=== PATIENT | female | born 1945 | race Caucasian/White ===

== ENCOUNTER 2016-10-30 14:17 | Inpatient (IN) | payer MEDICARE ==
[~2016-10-30] VITALS: Ht 165.1 cm; Wt 73.7 kg
[2016-10-30] VITALS (10 sets, daily range): BP systolic 95–157; BP diastolic 44–110
[2016-10-30] MEDS ORDERED: SODIUM CHLORIDE 0.9% 1,000ML IVBOLUS ONE (15:00)
[2016-10-30] MEDS ORDERED: PLEASE ENTER ALLERGIES MC SCH ×2 (15:00)
[2016-10-30] MEDS ORDERED: SODIUM CHLORIDE FLUSH 10ML SYR IVF ONE (15:00)
[2016-10-30 15:03] LABS: BLOOD UREA NITROGEN 132 mg/dL (7-18)
[2016-10-30] MEDS ORDERED: PANTOPRAZOLE 80 MG in SODIUM CHLORIDE 0.9% 100 ML IV SCH (15:16)
[2016-10-30] MEDS ORDERED: TRAM50TA2 PO (15:30)
[2016-10-30] MEDS ORDERED: NAPR-874 PO (15:30)
[2016-10-30] MEDS ORDERED: DIPH25CA61 PO (15:30)
[2016-10-30 15:33] LABS: DIFF TOTAL CELLS COUNTED 100 CELL DIFF
[2016-10-30 15:37] LABS: ANISOCYTOSIS 1+; HYPOCHROMIA 1+
[2016-10-30 15:38] LABS: LARGE PLATELETS 1+
[2016-10-30 15:39] LABS: VERIFY COUNTS? YES
[2016-10-30] MEDS ORDERED: CEFTRIAXONE 1,000 MG in SODIUM CHLORIDE 0.9% 50 ML IV SCH (16:00)
[2016-10-30] MEDS ORDERED: POLYETHYLENE GLYCOL 17 GM PACKET PO PRN (16:00)
[2016-10-30] MEDS ORDERED: ACETAMINOPHEN 325 MG TABLET PO PRN (16:00)
[2016-10-30] MEDS ORDERED: NALOXONE 0.4 MG/ML, 1ML ONE (16:38)
[2016-10-30] MEDS ORDERED: FENTANYL PF 100 MCG/2ML ONE (16:38)
[2016-10-30] MEDS ORDERED: MIDAZOLAM 1 MG/ML, 5ML ONE ×2 (16:38→16:39)
[2016-10-30] MEDS ORDERED: MIDAZOLAM 10MG/2 ML IVPush ONE (18:00)
[2016-10-30] MEDS ORDERED: FENTANYL IVPush ONE (18:00)
[2016-10-30] MEDS ORDERED: FENTANYL PF 100 MCG/2ML IVPush ONE (18:00)
[2016-10-30] MEDS: SODIUM CHLORIDE 0.9% 1,000 ML IV SCH (19:50)
[2016-10-30] MEDS: CEFTRIAXONE PMX 1GM/50ML 50 ML IV SCH (19:51)
[2016-10-30] MEDS: PANTOPRAZOLE 80 MG in SODIUM CHLORIDE 0.9% 100 ML IV SCH (19:51)
[2016-10-30] MEDS ORDERED: PNEUMOCOCCAL 23 VACCINE IM-VACC ONE (23:30)
[2016-10-31] MEDS: PANTOPRAZOLE 80 MG in SODIUM CHLORIDE 0.9% 100 ML IV SCH ×2 (04:08→13:29)
[2016-10-31] MEDS: SODIUM CHLORIDE 0.9% 1,000 ML IV SCH ×3 (05:35→22:45)
[2016-10-31 05:43] LABS: ASPARTATE AMINO TRANSFERASE 24 U/L (15-37)
[2016-10-31 05:47] LABS: BLOOD UREA NITROGEN 117 mg/dL (7-18)
[2016-10-31 06:20] LABS: DIFF TOTAL CELLS COUNTED 100 CELL DIFF
[2016-10-31 06:22] LABS: ANISOCYTOSIS 1+; VERIFY COUNTS? YES
[2016-10-31 06:23] LABS: POIKILOCYTOSIS 1+; POLYCHROMASIA 1+
[2016-10-31 06:24] LABS: LARGE PLATELETS 1+
[2016-10-31] MEDS ORDERED: EPINEPHRINE SYRINGE 0.1 MG/ML, 10ML ONE (07:50)
[2016-10-31] MEDS: SENNA/DOCUSATE TABLET PO SCH (08:46)
[2016-10-31] MEDS ORDERED: PNEUMOCOCCAL 23 VACCINE IM-VACC ONE (17:00)
[2016-10-31] MEDS: CEFTRIAXONE PMX 1GM/50ML 50 ML IV SCH (18:33)
[2016-11-01] VITALS (9 sets, daily range): BP systolic 92–115; BP diastolic 41–62
[2016-11-01] MEDS: PANTOPRAZOLE 80 MG in SODIUM CHLORIDE 0.9% 100 ML IV SCH ×3 (01:57→23:04)
[2016-11-01 04:34] LABS: BLOOD UREA NITROGEN 64 mg/dL (7-18)
[2016-11-01] MEDS ORDERED: MIDAZOLAM 1 MG/ML, 5ML ONE (07:01)
[2016-11-01] MEDS ORDERED: FENTANYL PF 100 MCG/2ML ONE (07:01)
[2016-11-01] MEDS ORDERED: EPINEPHRINE SYRINGE 0.1 MG/ML, 10ML ONE (08:26)
[2016-11-01] MEDS: SENNA/DOCUSATE TABLET PO SCH (09:00)
[2016-11-01] MEDS: POTASSIUM CHLORIDE 40 MEQ in SODIUM CHLORIDE 0.9% 100 ML IV SCH ×2 (09:11→14:06)
[2016-11-01] MEDS: SODIUM CHLORIDE 0.9% 1,000 ML IV SCH ×2 (09:12→14:06)
[2016-11-01] MEDS: SUCRALFATE 1 GM/10 ML UDC PO SCH ×3 (09:33→21:08)
[2016-11-01] MEDS: CEFTRIAXONE PMX 1GM/50ML 50 ML IV SCH (17:06)
[2016-11-02] MEDS: SODIUM CHLORIDE 0.9% 1,000 ML IV SCH (01:48)
[2016-11-02] MEDS: SUCRALFATE 1 GM/10 ML UDC PO SCH ×4 (03:14→21:27)
[2016-11-02 05:25] LABS: ASPARTATE AMINO TRANSFERASE 24 U/L (15-37); BLOOD UREA NITROGEN 27 mg/dL (7-18)
[2016-11-02] MEDS ORDERED: D5%-0.45NACL+KCL 20MEQ 1,000 ML IV SCH (06:00)
[2016-11-02] MEDS: POTASSIUM CHLORIDE 20 MEQ in DEXTROSE 5% 1,000 ML IV SCH ×2 (06:40→17:20)
[2016-11-02] MEDS: SENNA/DOCUSATE TABLET PO SCH (09:00)
[2016-11-02] MEDS: PANTOPRAZOLE 80 MG in SODIUM CHLORIDE 0.9% 100 ML IV SCH ×2 (10:49→21:27)
[2016-11-02 11:33] LABS: BLOOD UREA NITROGEN 22 mg/dL (7-18)
[2016-11-02 19:47] VITALS: BP 134/69
[2016-11-03 01:35] VITALS: BP 123/72
[2016-11-03] MEDS: POTASSIUM CHLORIDE 20 MEQ in DEXTROSE 5% 1,000 ML IV SCH ×2 (03:18→16:55)
[2016-11-03] MEDS: SUCRALFATE 1 GM/10 ML UDC PO SCH ×4 (03:18→21:52)
[2016-11-03 05:27] LABS: BLOOD UREA NITROGEN 13 mg/dL (7-18)
[2016-11-03 05:31] LABS: ASPARTATE AMINO TRANSFERASE 21 U/L (15-37)
[2016-11-03] MEDS: PANTOPRAZOLE 80 MG in SODIUM CHLORIDE 0.9% 100 ML IV SCH ×2 (05:56→14:20)
[2016-11-03] MEDS: SENNA/DOCUSATE TABLET PO SCH (09:00)
[2016-11-03] MEDS ORDERED: POTASSIUM CHLORIDE 20 MEQ TAB.ER.PRT PO ONE (18:00)
[2016-11-03 19:13] VITALS: BP 123/72
[2016-11-03] MEDS: ONDANSETRON 2MG/ML, 2ML IVPush PRN (20:20)
[2016-11-04] MEDS: SUCRALFATE 1 GM/10 ML UDC PO SCH ×4 (01:43→20:00)
[2016-11-04 02:00] VITALS: BP 108/70
[2016-11-04 05:45] LABS: BLOOD UREA NITROGEN 8 mg/dL (7-18)
[2016-11-04 08:09] VITALS: BP 126/61
[2016-11-04] MEDS: SENNA/DOCUSATE TABLET PO SCH (09:00)
[2016-11-04] MEDS: ONDANSETRON 2MG/ML, 2ML IVPush PRN (09:11)
[2016-11-04] MEDS: PANTOPROZOLE 40MG TABLET PO SCH ×2 (10:31→20:00)
[2016-11-04 13:42] VITALS: BP 111/63
[2016-11-04 19:54] VITALS: BP 123/77
[2016-11-05] MEDS: SUCRALFATE 1 GM/10 ML UDC PO SCH ×2 (02:23→08:20)
[2016-11-05 03:01] VITALS: BP 125/74
[2016-11-05 05:52] LABS: BLOOD UREA NITROGEN 6 mg/dL (7-18)
[2016-11-05 07:27] VITALS: BP 127/72
[2016-11-05] MEDS: SENNA/DOCUSATE TABLET PO SCH (08:19)
[2016-11-05] MEDS: PANTOPROZOLE 40MG TABLET PO SCH (08:20)
[2016-11-05] MEDS ORDERED: PANT40TA3 PO (10:43)
[2016-11-05] MEDS ORDERED: SUCR1ORA2 PO (10:43)
== END 2016-11-05 12:05 | disposition home or self-care (01) | DRG 377 ==
LOC: ED 17:37 → EDIP 18:01 → CCU 18:56 → 4WST 11-02 18:49
PROVIDERS: ADMIT Internal Medicine
PROC: 30233N1 Transfusion of Nonautologous Red Blood Cells into Peripheral Vein, Percutaneous Approach (ICD-10-PCS; 2016-10-30)
PROC: 02HV33Z Insertion of Infusion Device into Superior Vena Cava, Percutaneous Approach (ICD-10-PCS; 2016-10-30)
PROC: 0W3P8ZZ Control Bleeding in Gastrointestinal Tract, Via Natural or Artificial Opening Endoscopic (ICD-10-PCS; 2016-10-30)
PROC: 3E0G8GC Introduction of Other Therapeutic Substance into Upper GI, Via Natural or Artificial Opening Endoscopic (ICD-10-PCS; 2016-10-30)
PROC: 3E0G8GC Introduction of Other Therapeutic Substance into Upper GI, Via Natural or Artificial Opening Endoscopic (ICD-10-PCS; 2016-11-01)
PROC: 0W3P8ZZ Control Bleeding in Gastrointestinal Tract, Via Natural or Artificial Opening Endoscopic (ICD-10-PCS; principal; 2016-11-01 07:25)
DX: K25.4 Chronic or unspecified gastric ulcer with hemorrhage (principal); E43 Unspecified severe protein-calorie malnutrition; N17.0 Acute kidney failure with tubular necrosis; D62 Acute posthemorrhagic anemia; E87.2 Acidosis; E87.0 Hyperosmolality and hypernatremia; N39.0 Urinary tract infection, site not specified; M19.90 Unspecified osteoarthritis, unspecified site; D47.3 Essential (hemorrhagic) thrombocythemia; I95.9 Hypotension, unspecified; E87.6 Hypokalemia; F17.200 Nicotine dependence, unspecified, uncomplicated; K08.89 Other specified disorders of teeth and supporting structures; K22.2 Esophageal obstruction; Z80.6 Family history of leukemia; Z87.11 Personal history of peptic ulcer disease; Z90.710 Acquired absence of both cervix and uterus; Z90.49 Acquired absence of other specified parts of digestive tract; Z90.89 Acquired absence of other organs; Z68.27 Body mass index [BMI] 27.0-27.9, adult
CPT/HCPCS: 36415; 36556; 70100; 71010; 76000; 80048; 80053; 81001; 82040; 82728; 83540; 83550; 84443; 85014; 85018; 85025; 85610; 85730; 86677; 86850; 86900; 86923; 87040; 87081; 87086; 90732; 93005; 96365; 96375; 99151; 99152; J0696; J2250; J2405; J3010; J3480; J7070; C9113; J7030; P9016